=== PATIENT | female | born 1985 | race Hispanic/Latino ===

== ENCOUNTER 2018-06-14 09:32 | Emergency (ER) | payer SELFPAY ==
[2018-06-14 09:32] VITALS: BMI 29.2
--- NOTE | 2018-06-14 10:15 | C.PDOC ---
History Of Present Illness 33 y/o female with no PMHx presents to the ED complaining of lower abdominal pain for a while but worsening over the last day. Of note, patient has IUD in place. She denies any fever, chills, nausea, vomiting, dysuria, hematuria, or urinary frequency. No vaginal bleeding or discharge. Time Seen by Provider: 06/14/18 09:50 Chief Complaint (Nursing): Abdominal Pain History Per: Patient History/Exam Limitations: no limitations Onset/Duration Of Symptoms: Days Current Symptoms Are (Timing): Still Present Location Of Pain/Discomfort: Suprapubic Radiation Of Pain To:: None Past Medical History Reviewed: Historical Data, Nursing Documentation, Vital Signs - Medical History PMH: No Chronic Diseases Surgical History: - [facility] Procedures EXTRACTION OF POC, LOW CERVICAL, OPEN APPROACH (11/25/15) Family History: States: Unknown Family Hx - Social History Hx Tobacco Use: No Hx Alcohol Use: No Hx Substance Use: No Review Of Systems Constitutional: Negative for: Fever, Chills Gastrointestinal: Positive for: Abdominal Pain. Negative for: Nausea, Vomiting, Diarrhea, Hematochezia Genitourinary: Negative for: Dysuria, Frequency, Hematuria, Vaginal Discharge, Vaginal Bleeding Physical Exam - Physical Exam Appears: Non-toxic, No Acute Distress Skin: Warm, Dry Head: Atraumatic, Normacephalic Eye(s): bilateral: Normal Inspection, PERRL, EOMI Neck: Normal ROM Chest: Symmetrical Cardiovascular: Rhythm Regular, No Murmur Respiratory: Normal Breath Sounds, No Accessory Muscle Use Gastrointestinal/Abdominal: Soft, Tenderness (mild suprapubic tenderness), No Guarding, No Rebound Extremity: Bilateral: Atraumatic, Normal Color And Temperature, Normal ROM Neurological/Psych: Oriented x3, Normal Speech Gait: Steady ED Course And Treatment - Laboratory Results Result Diagrams: 06/14/18 10:13 06/14/18 10:13 Lab Interpretation: Normal Urine POC: Negative O2 Sat by Pulse Oximetry: 98 Pulse Ox Interpretation: Normal - CT Scan/US No standard instances Other Rad Studies (CT/US): Read By Radiologist, Radiology Report Reviewed CT/US Interpretation: FINDINGS: UTERUS: Measures 7.9 x 3.7 x 4.8 cm. Anteverted. ENDOMETRIUM: Measures 5 mm in diameter. IUD appears in satisfactory position. CERVIX: No cervical abnormality identified. RIGHT OVARY: Measures 4.0 x 1.7 x 2.8 cm. Blood flow is demonstrated. LEFT OVARY: Measures 3.7 x 2.0 x 2.6 cm. Blood flow is demonstrated. FREE FLUID: Trace fluid, cul-de-sac. OTHER FINDINGS: None. IMPRESSION: IUD appears in satisfactory position. Trace pelvic fluid, cul-de-sac. Progress Note: Treated with toradol IV. On re-evaluation abdomen soft non- tender, in no distress Reassessment Condition: Improved Medical Decision Making Medical Decision Making: Plan: --Transvaginal US --Labs --Toradol IM given for pain Disposition Counseled Patient/Family Regarding: Diagnosis, Need For Followup, Rx Given - Disposition Referrals: [facility] [Outside] [facility] [Outside] Disposition: HOME/ ROUTINE Disposition Time: 14:00 Condition: IMPROVED Additional Instructions: Return to ED if any increase symptoms Follow up at clinic Prescriptions: Naproxen [Naprosyn] 1 tab PO BID PRN #25 tab PRN Reason: Pain Instructions: Acute Abdomen (Belly Pain) Forms: [employer] (German) Print Language: ETHIOPIAN - POA Present On Arrival: None - Clinical Impression Clinical Impression: Abdominal pain - 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 - Scribe Statement The provider has reviewed the documentation as recorded by the Scribspencer Zavala All medical record entries made by the Scribe were at my direction and personally dictated by me. I have reviewed the chart and agree that the record accurately reflects my personal performance of the history, physical exam, medical decision making, and the department course for this patient. I have also personally directed, reviewed, and agree with the discharge instructions and disposition.
[2018-06-14 10:17] LABS: BASO % 0.6 % (0.0-2.0); EOS # 0.2 K/uL (0.0-0.7); EOS % 2.6 % (0.0-4.0); LYMPH # 1.3 K/uL (1.0-4.3); LYMPH % 22.1 % (20.0-40.0); MEAN CELL VOLUME 92.7 fL (81.0-99.0); MEAN CORPUSCULAR HEMOGLOBIN 31.8 pg (27.0-31.0); MEAN CORPUSCULAR HGB CONC 34.3 g/dL (33.0-37.0); MEAN PLATELET VOLUME 9.1 fL (7.2-11.7); MONO # 0.7 K/uL (0.0-0.8); MONO % 11.3 % (0.0-10.0); NEUT # 3.8 K/uL (1.8-7.0); NEUT % 63.4 % (50.0-75.0); NRBC % 0.1 % (0.0-2.0); RBC 4.08 Mil/uL (3.80-5.20); RED CELL DISTRIBUTION WIDTH 13.7 % (11.5-14.5); WHITE BLOOD COUNT 5.9 K/uL (4.8-10.8)
[2018-06-14 10:27] LABS: ALB/GLOB RATIO 1.3 (1.0-2.1); ALBUMIN 4.3 g/dL (3.5-5.0); ALT/SGPT 63 U/L (9-52); AST/SGOT 73 U/L (14-36); BLOOD UREA NITROGEN 7 mg/dL (7-17); CALCIUM 8.9 mg/dl (8.6-10.4); GFR NON-AFRICAN AMERICAN > 60
[2018-06-14 10:28] LABS: HCG,QUALITATIVE URINE NEGATIVE (NEGATIVE)
[2018-06-14 10:34] LABS: SQUAMOUS EPITHIAL 3 /hpf (0-5); URINE BILIRUBIN NEGATIVE (NEGATIVE); URINE BLOOD NEGATIVE (NEGATIVE); URINE CLARITY Hazy (Clear); URINE COLOR Yellow (YELLOW); URINE GLUCOSE (UA) NORMAL (Normal); URINE PROTEIN NEGATIVE (NEGATIVE); URINE UROBILINOGEN NORMAL mg/dL (0.2-1.0)
[2018-06-14 10:44] LABS: URINE LEUKOCYTE ESTERASE 2+ Leu/uL (Negative)
--- NOTE | 2018-06-14 13:21 | US ---
Date of service: 06/14/2018 HISTORY: vaginal bleeding COMPARISON: Pelvic ultrasound performed 12/23/14 TECHNIQUE: Transvaginal pelvic ultrasound FINDINGS: UTERUS: Measures 7.9 x 3.7 x 4.8 cm. Anteverted. ENDOMETRIUM: Measures 5 mm in diameter. IUD appears in satisfactory position. CERVIX: No cervical abnormality identified. RIGHT OVARY: Measures 4.0 x 1.7 x 2.8 cm. Blood flow is demonstrated. LEFT OVARY: Measures 3.7 x 2.0 x 2.6 cm. Blood flow is demonstrated. FREE FLUID: Trace fluid, cul-de-sac. OTHER FINDINGS: None. IMPRESSION: IUD appears in satisfactory position. Trace pelvic fluid, cul-de-sac.
[2018-06-14 13:58] VITALS: BP 107/71; PULSE 54; RESP 18; TEMP 97.7
[2018-06-14 17:38] VITALS: O2SAT 98
== END 2018-06-14 14:23 | disposition home or self-care (01) ==
LOC: C.ER 09:32
DX: R10.30 Lower abdominal pain, unspecified (principal)
CPT/HCPCS: 76830; 76856; 80053; 81001; 84703; 85025; 96374; 99284; J1885